=== PATIENT | male | born 1955 | race Asian ===

== ENCOUNTER 2017-01-07 07:36 | Emergency (ER) | payer OTHER ==
[~2017-01-07] VITALS: Ht 175.3 cm; Wt 94.5 kg
[2017-01-07 10:28] VITALS: BP 132/74
== END 2017-01-07 10:28 | disposition home or self-care (01) ==
LOC: ED 07:36
DX: S20.219A Contusion of unspecified front wall of thorax, initial encounter (principal); E07.9 Disorder of thyroid, unspecified; V49.9XXA Car occupant (driver) (passenger) injured in unspecified traffic accident, initial encounter; W22.10XA Striking against or struck by unspecified automobile airbag, initial encounter; Y93.89 Activity, other specified; Y99.8 Other external cause status; Y92.89 Other specified places as the place of occurrence of the external cause
CPT/HCPCS: Q0092